=== PATIENT | female | born 1965 | race Caucasian/White ===

== ENCOUNTER 2018-08-30 14:12 | Inpatient (IN) | payer MEDICAID ==
[~2018-08-30] VITALS: Ht 165.1 cm; Wt 119.3 kg
[2018-08-30] MEDS ORDERED: ONDANSETRON HCL 4MG/2ML INJ IV STA (15:18)
[2018-08-30] MEDS ORDERED: MORPHINE SULFATE 4 MG/ML CPJ (NOT FOR IM USE) IV STA (15:18)
[2018-08-30 15:53] LABS: HEMATOCRIT. 30.3 % (36.0-48.0); HEMOGLOBIN. 10.2 g/dL (12.0-16.0); MEAN CORPUSCULAR HEMOGLOBIN 33.3 pg (28.0-32.0); MEAN CORPUSCULAR VOLUME 98.7 fL (81.0-99.0); PLATELET 98 x1000/uL (130-400); RED BLOOD CELL COUNT 3.07 mill/uL (4.2-5.4); RED CELL DISTRIBUTION WIDTH 18.2 % (11.6-14.6)
[2018-08-30 15:59] LABS: CHLORIDE 89 mEq/L (98-107); INR 1.6; PROTHROMBIN TIME 16.5 sec (9.6-11.0)
[2018-08-30] MEDS ORDERED: CEFTRIAXONE 2 G PREMIX 50 ML IV ONE (16:30)
[2018-08-30 16:33] LABS: PLATELET ESTIMATE DECREASED
[2018-08-30] MEDS ORDERED: SODIUM CHLORIDE 0.9% 1,000 ML IV ONE (18:00)
[2018-08-30] MEDS ORDERED: ONDANSETRON HCL 4MG/2ML INJ IV PRN (19:30)
[2018-08-30] MEDS ORDERED: HYDROCODONE/ACETAMINOPHEN 5/325MG TABLET PO PRN (19:30)
[2018-08-30] MEDS ORDERED: LORAZEPAM 0.5MG TABLET PO PRN (19:30)
[2018-08-30] MEDS ORDERED: CLONIDINE 0.1MG TABLET PO PRN (19:30)
[2018-08-30 21:00] VITALS: BP 108/49
[2018-08-30] MEDS ORDERED: SIMV40TA5 PO (22:23)
[2018-08-30] MEDS ORDERED: HYDR25TA PO (22:23)
[2018-08-30] MEDS ORDERED: AMLO10TA80 PO (22:23)
[2018-08-30] MEDS ORDERED: METF-416 PO (22:23)
[2018-08-30] MEDS ORDERED: FURO-152 PO (22:23)
[2018-08-30] MEDS ORDERED: Diabeta PO (22:23)
[2018-08-30] MEDS: SODIUM CHLORIDE 0.9% 1,000 ML IV SCH (23:05)
[2018-08-31] VITALS: BP 112/48
[2018-08-31 01:58] LABS: CLARITY URINE CLOUDY (CLEAR); COLOR URINE DARK YELLOW (YELLOW); KETONES URINE NEGATIVE (NEGATIVE); LEUKOCYTE ESTERASE URINE TRACE (NEGATIVE); NITRITE URINE NEGATIVE (NEGATIVE); OCCULT BLOOD URINE TRACE (NEGATIVE); PROTEIN URINE NEGATIVE (NEGATIVE); SPECIFIC GRAVITY URINE 1.016 (1.005-1.030)
[2018-08-31 02:08] LABS: *AMPHETAMINES SCREEN URINE NEGATIVE (NEGATIVE); *BARBITURATES SCREEN URINE NEGATIVE (NEGATIVE); *BENZODIAZEPINES SCREEN URINE NEGATIVE (NEGATIVE)
[2018-08-31 02:09] LABS: *COCAINE SCREEN URINE NEGATIVE (NEGATIVE); CANNABINOID URINE SCREEN NEGATIVE (NEGATIVE); METHADONE URINE SCREEN NEGATIVE (NEGATIVE); OPIATES URINE SCREEN PRESUMTIVE POSITIVE (NEGATIVE); PHENCYCLIDINE URINE SCREEN NEGATIVE (NEGATIVE)
[2018-08-31 04:00] VITALS: BP 105/51
[2018-08-31 07:09] LABS: BASOPHILS % 0.4 % (0.0-2.0); EOSINOPHILS % 0.7 % (0.0-5.0); HEMATOCRIT. 29.8 % (36.0-48.0); HEMOGLOBIN. 10.2 g/dL (12.0-16.0); LYMPHOCYTES % 7.7 % (20.0-50.0); MEAN CORPUSCULAR HEMOGLOBIN 33.7 pg (28.0-32.0); MEAN CORPUSCULAR VOLUME 98.6 fL (81.0-99.0); MEAN PLATELET VOLUME 9.2 fl (7.4-10.4); MONOCYTES % 8.4 % (2.0-8.0); NEUTROPHILS % 82.8 % (40.0-76.0); PLATELET 100 x1000/uL (130-400); RED BLOOD CELL COUNT 3.02 mill/uL (4.2-5.4); RED CELL DISTRIBUTION WIDTH 18.3 % (11.6-14.6)
[2018-08-31 07:49] LABS: HEPATITIS B SURFACE ANTIGEN NEGATIVE
[2018-08-31 07:50] LABS: CHLORIDE 91 mEq/L (98-107)
[2018-08-31] MEDS ORDERED: GLYBURIDE 5MG TABLET PO SCH (07:50)
[2018-08-31] MEDS ORDERED: METFORMIN HCL 500MG TABLET PO SCH (07:50)
[2018-08-31 07:57] LABS: PHOSPHORUS 3.2 mg/dL (2.5-4.9)
[2018-08-31 07:58] LABS: LDL CHOLESTEROL 69 mg/dL (5-100)
[2018-08-31 08:00] VITALS: BP 106/47
[2018-08-31 08:00] LABS: HDL CHOLESTEROL 10 mg/dL (40-59)
[2018-08-31] MEDS: AMLODIPINE 10MG TABLET PO SCH (08:08)
[2018-08-31 08:19] LABS: HEPATITIS A AB IGM NEGATIVE (NEGATIVE)
[2018-08-31] MEDS ORDERED: FUROSEMIDE 20MG TABLET PO SCH (09:00)
[2018-08-31] MEDS ORDERED: MEDICATION NOT ON FORMULARY EA (Simvastatin 40 MG) PO SCH (09:00)
[2018-08-31] MEDS ORDERED: HYDROCHLOROTHIAZIDE 25MG TABLET PO SCH (09:00)
[2018-08-31] MEDS ORDERED: MORPHINE SULFATE 4 MG/ML CPJ (NOT FOR IM USE) IV PRN (10:15)
[2018-08-31] MEDS ORDERED: LIDOCAINE HCL 1% 20ML VIAL (Pyxis) INJ ONE (10:52)
[2018-08-31] MEDS ORDERED: SODIUM BICARBONATE 4% (2.4MEQ) 5ML VIAL IV ONE (10:52)
[2018-08-31 12:00] VITALS: BP 98/43
[2018-08-31] MEDS: OMEPRAZOLE 20MG CAPSULE EXTENDED RELEASE PO SCH ×3 (13:27→21:03)
[2018-08-31] MEDS: LINEZOLID 600 MG PREMIX 300 ML IV SCH (14:35)
[2018-08-31] MEDS: PHYTONADIONE 10MG/ML AMP SUBCUT SCH (14:35)
[2018-08-31] MEDS ORDERED: LORAZEPAM 2MG/ML CPJ IV PRN ×2 (16:30→16:52)
[2018-08-31] MEDS: MULTIVITAMINS,THER W-MINERALS TABLET PO SCH (17:37)
[2018-08-31] MEDS: FOLIC ACID 1MG TABLET PO SCH (17:37)
[2018-08-31] MEDS: THIAMINE HCL 100MG TABLET PO SCH (17:37)
[2018-08-31] MEDS: SODIUM CHLORIDE 0.9% 1,000 ML IV SCH (19:29)
[2018-08-31 20:00] VITALS: BP 108/49
[2018-08-31 20:44] LABS: ETHANOL BLOOD < 10 mg/dL
[2018-08-31 20:49] LABS: HCG SCREEN NEGATIVE
[2018-08-31] MEDS ORDERED: ATORVASTATIN CALCIUM 20MG TABLET PO SCH (21:00)
[2018-08-31] MEDS: CHLORDIAZEPOXIDE 25MG CAPSULE PO SCH (21:04)
[2018-08-31 21:18] LABS: VITAMIN B12 SERUM > 2000.0 pg/mL (211-911)
[2018-09-01] VITALS: BP 102/51
[2018-09-01] MEDS: LINEZOLID 600 MG PREMIX 300 ML IV SCH ×2 (00:33→12:33)
[2018-09-01] MEDS: MORPHINE SULFATE 2 MG/ML CPJ (NOT FOR IM USE) IV PRN ×2 (01:48→17:37)
[2018-09-01] MEDS: CEFTRIAXONE 2 G in DEXTROSE 5% WATER 50 ML IV SCH (02:37)
[2018-09-01 04:00] VITALS: BP 111/52
[2018-09-01] MEDS: OMEPRAZOLE 20MG CAPSULE EXTENDED RELEASE PO SCH ×2 (05:48→21:01)
[2018-09-01] MEDS: CHLORDIAZEPOXIDE 25MG CAPSULE PO SCH ×3 (05:48→21:01)
[2018-09-01 06:02] LABS: BASOPHILS % 0.4 % (0.0-2.0); EOSINOPHILS % 1.8 % (0.0-5.0); HEMOGLOBIN. 9.7 g/dL (12.0-16.0); LYMPHOCYTES % 12.4 % (20.0-50.0); MEAN CORPUSCULAR HEMOGLOBIN 34.3 pg (28.0-32.0); MEAN CORPUSCULAR VOLUME 99.4 fL (81.0-99.0); MEAN PLATELET VOLUME 9.1 fl (7.4-10.4); MONOCYTES % 8.9 % (2.0-8.0); NEUTROPHILS % 76.5 % (40.0-76.0); PLATELET 87 x1000/uL (130-400); RED BLOOD CELL COUNT 2.82 mill/uL (4.2-5.4); RED CELL DISTRIBUTION WIDTH 18.1 % (11.6-14.6)
[2018-09-01 06:36] LABS: INR 1.5; PROTHROMBIN TIME 14.7 sec (9.6-11.0)
[2018-09-01 06:50] LABS: CHLORIDE 92 mEq/L (98-107)
[2018-09-01 08:00] VITALS: BP 118/59
[2018-09-01] MEDS: MULTIVITAMINS,THER W-MINERALS TABLET PO SCH (08:37)
[2018-09-01] MEDS: FOLIC ACID 1MG TABLET PO SCH (08:37)
[2018-09-01] MEDS: THIAMINE HCL 100MG TABLET PO SCH (08:37)
[2018-09-01] MEDS: AMLODIPINE 10MG TABLET PO SCH (08:41)
[2018-09-01] MEDS ORDERED: POTASSIUM CHLORIDE 20MEQ TABLET SR PO NR (09:00)
[2018-09-01] MEDS: PHYTONADIONE 10MG/ML AMP SUBCUT SCH (09:54)
[2018-09-01 12:00] VITALS: BP 102/46
[2018-09-01] MEDS: SODIUM CHLORIDE 0.9% 1,000 ML IV SCH (12:30)
[2018-09-01] MEDS ORDERED: PROPOFOL 200MG/20ML VIAL IV ONE ×2 (13:38→14:07)
[2018-09-01] MEDS ORDERED: MIDAZOLAM HCL 2 MG/2 ML VIAL ONE (13:38)
[2018-09-01] MEDS ORDERED: LIDOCAINE HCL/PF 1% 10 MG/ML 5ML VIAL ONE (13:38)
[2018-09-01] MEDS ORDERED: SIMETHICONE 40 MG/0.6 ML 30ML ONE (13:47)
[2018-09-01] MEDS ORDERED: ONDANSETRON HCL 4MG/2ML INJ IV PRN (14:30)
[2018-09-01 16:00] VITALS: BP 106/52
[2018-09-01 20:00] VITALS: BP 93/40
[2018-09-01 20:13] LABS: PHOSPHORUS 2.7 mg/dL (2.5-4.9)
[2018-09-02] VITALS: BP 109/37
[2018-09-02] MEDS: LINEZOLID 600 MG PREMIX 300 ML IV SCH ×2 (02:11→12:54)
[2018-09-02] MEDS: CEFTRIAXONE 2 G in DEXTROSE 5% WATER 50 ML IV SCH (03:18)
[2018-09-02 04:00] VITALS: BP 90/35
[2018-09-02] MEDS: CHLORDIAZEPOXIDE 25MG CAPSULE PO SCH ×3 (05:52→22:34)
[2018-09-02] MEDS: OMEPRAZOLE 20MG CAPSULE EXTENDED RELEASE PO SCH ×2 (05:52→20:21)
[2018-09-02 07:11] LABS: BASOPHILS % 0.4 % (0.0-2.0); EOSINOPHILS % 1.4 % (0.0-5.0); HEMATOCRIT. 27.4 % (36.0-48.0); HEMOGLOBIN. 9.3 g/dL (12.0-16.0); LYMPHOCYTES % 8.8 % (20.0-50.0); MEAN CORPUSCULAR HEMOGLOBIN 34.1 pg (28.0-32.0); MONOCYTES % 5.9 % (2.0-8.0); NEUTROPHILS % 83.5 % (40.0-76.0); PLATELET 91 x1000/uL (130-400); RED BLOOD CELL COUNT 2.74 mill/uL (4.2-5.4); RED CELL DISTRIBUTION WIDTH 17.9 % (11.6-14.6)
[2018-09-02 07:14] LABS: HIV SCREEN 4G Non Reactive (Non Reactive)
[2018-09-02 07:37] LABS: CHLORIDE 95 mEq/L (98-107)
[2018-09-02 08:31] VITALS: BP 107/52
[2018-09-02] MEDS ORDERED: MORPHINE SULFATE 2 MG/ML CPJ (NOT FOR IM USE) IV NR (08:47)
[2018-09-02] MEDS: FOLIC ACID 1MG TABLET PO SCH (08:48)
[2018-09-02] MEDS: MULTIVITAMINS,THER W-MINERALS TABLET PO SCH (08:48)
[2018-09-02] MEDS: THIAMINE HCL 100MG TABLET PO SCH (08:48)
[2018-09-02] MEDS: AMLODIPINE 10MG TABLET PO SCH (08:49)
[2018-09-02] MEDS: PHYTONADIONE 10MG/ML AMP SUBCUT SCH (10:20)
[2018-09-02] MEDS: LEVOTHYROXINE SODIUM 25MCG TABLET PO SCH (10:27)
[2018-09-02 11:53] VITALS: BP 108/48
[2018-09-02] MEDS ORDERED: SODIUM CHLORIDE 0.9% 1,000 ML IV SCH (13:45)
[2018-09-02 15:20] VITALS: BP 110/46
[2018-09-02 17:48] LABS: INR 1.4; PROTHROMBIN TIME 13.9 sec (9.6-11.0)
[2018-09-02 20:00] VITALS: BP 110/58
[2018-09-02] MEDS: ACETAMINOPHEN 325MG TABLET PO PRN (20:21)
[2018-09-03] VITALS: BP 105/55
[2018-09-03] MEDS: CEFTRIAXONE 2 G in DEXTROSE 5% WATER 50 ML IV SCH (01:45)
[2018-09-03 04:00] VITALS: BP 100/50
[2018-09-03] MEDS: CHLORDIAZEPOXIDE 25MG CAPSULE PO SCH ×3 (06:10→21:31)
[2018-09-03] MEDS: LEVOTHYROXINE SODIUM 25MCG TABLET PO SCH (06:10)
[2018-09-03] MEDS: OMEPRAZOLE 20MG CAPSULE EXTENDED RELEASE PO SCH ×2 (06:10→21:31)
[2018-09-03] MEDS: ACETAMINOPHEN 325MG TABLET PO PRN (06:42)
[2018-09-03 06:56] LABS: BASOPHILS % 0.8 % (0.0-2.0); EOSINOPHILS % 1.6 % (0.0-5.0); HEMATOCRIT. 29.9 % (36.0-48.0); HEMOGLOBIN. 10.3 g/dL (12.0-16.0); LYMPHOCYTES % 13.3 % (20.0-50.0); MEAN CORPUSCULAR HEMOGLOBIN 34.2 pg (28.0-32.0); MEAN CORPUSCULAR VOLUME 99.2 fL (81.0-99.0); MEAN PLATELET VOLUME 8.6 fl (7.4-10.4); MONOCYTES % 5.9 % (2.0-8.0); NEUTROPHILS % 78.4 % (40.0-76.0); PLATELET 99 x1000/uL (130-400); RED BLOOD CELL COUNT 3.02 mill/uL (4.2-5.4); RED CELL DISTRIBUTION WIDTH 17.8 % (11.6-14.6)
[2018-09-03 07:06] LABS: CHLORIDE 93 mEq/L (98-107)
[2018-09-03 07:22] LABS: PHOSPHORUS 2.7 mg/dL (2.5-4.9)
[2018-09-03] MEDS ORDERED: POTASSIUM CHLORIDE 20MEQ/PACKET PO NR (08:00)
[2018-09-03 08:20] VITALS: BP 94/42
[2018-09-03] MEDS: MULTIVITAMINS,THER W-MINERALS TABLET PO SCH (08:51)
[2018-09-03] MEDS: FOLIC ACID 1MG TABLET PO SCH (08:51)
[2018-09-03] MEDS: THIAMINE HCL 100MG TABLET PO SCH (08:51)
[2018-09-03] MEDS: AMLODIPINE 10MG TABLET PO SCH (09:00)
[2018-09-03 11:41] VITALS: BP 95/39
[2018-09-03 15:43] VITALS: BP 102/49
[2018-09-03 20:00] VITALS: BP 96/48
[2018-09-04] VITALS: BP 105/73
[2018-09-04] MEDS: CEFTRIAXONE 2 G in DEXTROSE 5% WATER 50 ML IV SCH (01:34)
[2018-09-04 04:00] VITALS: BP 101/40
[2018-09-04] MEDS: CHLORDIAZEPOXIDE 25MG CAPSULE PO SCH ×3 (05:45→21:37)
[2018-09-04] MEDS: OMEPRAZOLE 20MG CAPSULE EXTENDED RELEASE PO SCH ×2 (05:45→21:37)
[2018-09-04] MEDS: LEVOTHYROXINE SODIUM 25MCG TABLET PO SCH (05:45)
[2018-09-04 07:00] LABS: BASOPHILS % 0.8 % (0.0-2.0); HEMATOCRIT. 27.1 % (36.0-48.0); HEMOGLOBIN. 9.5 g/dL (12.0-16.0); LYMPHOCYTES % 11.7 % (20.0-50.0); MEAN CORPUSCULAR HEMOGLOBIN 34.7 pg (28.0-32.0); MEAN CORPUSCULAR VOLUME 99.5 fL (81.0-99.0); MEAN PLATELET VOLUME 8.2 fl (7.4-10.4); MONOCYTES % 6.3 % (2.0-8.0); NEUTROPHILS % 79.2 % (40.0-76.0); PLATELET 86 x1000/uL (130-400); RED BLOOD CELL COUNT 2.73 mill/uL (4.2-5.4); RED CELL DISTRIBUTION WIDTH 17.9 % (11.6-14.6)
[2018-09-04 07:22] LABS: CHLORIDE 97 mEq/L (98-107)
[2018-09-04 07:29] LABS: PHOSPHORUS 3.2 mg/dL (2.5-4.9)
[2018-09-04 08:00] VITALS: BP 112/43
[2018-09-04] MEDS ORDERED: POTASSIUM CHLORIDE 20MEQ/PACKET PO SCH (08:15)
[2018-09-04] MEDS: THIAMINE HCL 100MG TABLET PO SCH (08:31)
[2018-09-04] MEDS: FOLIC ACID 1MG TABLET PO SCH (08:31)
[2018-09-04] MEDS: MULTIVITAMINS,THER W-MINERALS TABLET PO SCH (08:31)
[2018-09-04] MEDS: AMLODIPINE 10MG TABLET PO SCH (08:31)
[2018-09-04] MEDS ORDERED: SODIUM BICARBONATE 4% (2.4MEQ) 5ML VIAL IV ONE (10:29)
[2018-09-04] MEDS ORDERED: LIDOCAINE HCL 1% 20ML VIAL (Pyxis) INJ ONE (10:29)
[2018-09-04] MEDS: MORPHINE SULFATE 2 MG/ML CPJ (NOT FOR IM USE) IV PRN (10:46)
[2018-09-04 12:00] VITALS: BP 104/35
[2018-09-04] MEDS: SPIRONOLACTONE 25MG TABLET PO SCH (15:18)
[2018-09-04 16:00] VITALS: BP 114/34
[2018-09-04] MEDS: FUROSEMIDE 40MG TABLET PO SCH (17:11)
[2018-09-04 20:00] VITALS: BP 107/40
[2018-09-04] MEDS: PROPRANOLOL HCL 10MG TABLET PO SCH (21:38)
[2018-09-05] VITALS: BP 98/45
[2018-09-05] MEDS: CEFTRIAXONE 2 G in DEXTROSE 5% WATER 50 ML IV SCH (02:25)
[2018-09-05 04:00] VITALS: BP 101/55
[2018-09-05] MEDS: OMEPRAZOLE 20MG CAPSULE EXTENDED RELEASE PO SCH ×2 (06:54→21:20)
[2018-09-05] MEDS: CHLORDIAZEPOXIDE 25MG CAPSULE PO SCH (06:54)
[2018-09-05] MEDS: FUROSEMIDE 40MG TABLET PO SCH ×2 (06:55→17:15)
[2018-09-05] MEDS: LEVOTHYROXINE SODIUM 25MCG TABLET PO SCH (06:55)
[2018-09-05 07:30] LABS: BASOPHILS % 0.7 % (0.0-2.0); HEMATOCRIT. 30.8 % (36.0-48.0); HEMOGLOBIN. 10.5 g/dL (12.0-16.0); LYMPHOCYTES % 9.1 % (20.0-50.0); MEAN CORPUSCULAR HEMOGLOBIN 33.9 pg (28.0-32.0); MEAN CORPUSCULAR VOLUME 99.7 fL (81.0-99.0); MEAN PLATELET VOLUME 7.7 fl (7.4-10.4); MONOCYTES % 5.8 % (2.0-8.0); NEUTROPHILS % 82.4 % (40.0-76.0); PLATELET 111 x1000/uL (130-400); RED BLOOD CELL COUNT 3.09 mill/uL (4.2-5.4); RED CELL DISTRIBUTION WIDTH 18.1 % (11.6-14.6)
[2018-09-05 07:37] LABS: INR 1.3; PROTHROMBIN TIME 13.5 sec (9.6-11.0)
[2018-09-05 07:38] LABS: CHLORIDE 97 mEq/L (98-107)
[2018-09-05 07:48] LABS: PHOSPHORUS 3.5 mg/dL (2.5-4.9)
[2018-09-05 08:00] VITALS: BP 124/42
[2018-09-05] MEDS: FOLIC ACID 1MG TABLET PO SCH (09:24)
[2018-09-05] MEDS: MULTIVITAMINS,THER W-MINERALS TABLET PO SCH (09:24)
[2018-09-05] MEDS: THIAMINE HCL 100MG TABLET PO SCH (09:24)
[2018-09-05] MEDS: SPIRONOLACTONE 25MG TABLET PO SCH (09:25)
[2018-09-05] MEDS: PROPRANOLOL HCL 10MG TABLET PO SCH ×2 (09:25→21:00)
[2018-09-05 12:00] VITALS: BP 95/45
[2018-09-05] MEDS: LACTULOSE 20G/30ML UDC PO SCH ×2 (14:16→22:13)
[2018-09-05 16:00] VITALS: BP 95/44
[2018-09-05 16:59] LABS: BG BASE EXCESS -1.5 mmol/L (-2.0-2.0); BG CARBOXYHEMOGLOBIN 0.3 % (0.5-1.5); BG DEOXYHEMOGLOBIN 4.9 % (0.0-5.0); BG FRACTION INSPIRED OXYGEN 28; BG HCO3 ACT 22.7 mmol/L (22.0-26.0); BG METHEMOGLOBIN 0.1 % (0.0-1.5); BG OXYGEN SATURATION 95.1 % (92.0-98.5); BG OXYHEMOGLOBIN 94.7 % (94.0-97.0); BG PH 7.417 (7.350-7.450); BG PO2 80.2 mmHg (75.0-100.0); BG SAMPLE SITE RIGHT RADIAL; BG TOTAL HEMOGLOBIN 10.9 g/dL (12.0-18.0); BG VENT MODE NASAL CANNULA
[2018-09-05 20:00] VITALS: BP 111/44
[2018-09-05] MEDS: IPRATROPIUM/ALBUTEROL 0.5-3(2.5)MG/3ML NEB INH PRN (23:38)
[2018-09-06] VITALS (15 sets, daily range): BP systolic 88–118; BP diastolic 38–55
[2018-09-06] MEDS: CEFTRIAXONE 2 G in DEXTROSE 5% WATER 50 ML IV SCH (02:14)
[2018-09-06] MEDS: LACTULOSE 20G/30ML UDC PO SCH ×3 (06:27→21:53)
[2018-09-06] MEDS: FUROSEMIDE 40MG TABLET PO SCH ×2 (06:28→17:54)
[2018-09-06] MEDS: OMEPRAZOLE 20MG CAPSULE EXTENDED RELEASE PO SCH ×2 (06:29→21:53)
[2018-09-06] MEDS: LEVOTHYROXINE SODIUM 25MCG TABLET PO SCH (06:30)
[2018-09-06 07:04] LABS: CHLORIDE 99 mEq/L (98-107)
[2018-09-06 07:11] LABS: BASOPHILS % 0.8 % (0.0-2.0); EOSINOPHILS % 1.7 % (0.0-5.0); HEMATOCRIT. 29.1 % (36.0-48.0); HEMOGLOBIN. 9.9 g/dL (12.0-16.0); LYMPHOCYTES % 11.3 % (20.0-50.0); MEAN CORPUSCULAR HEMOGLOBIN 34.3 pg (28.0-32.0); MEAN CORPUSCULAR VOLUME 100.8 fL (81.0-99.0); MEAN PLATELET VOLUME 7.8 fl (7.4-10.4); MONOCYTES % 7.5 % (2.0-8.0); NEUTROPHILS % 78.7 % (40.0-76.0); PLATELET 88 x1000/uL (130-400); RED BLOOD CELL COUNT 2.89 mill/uL (4.2-5.4); RED CELL DISTRIBUTION WIDTH 18.1 % (11.6-14.6)
[2018-09-06 07:50] LABS: BG BASE EXCESS -1.9 mmol/L (-2.0-2.0); BG CARBOXYHEMOGLOBIN 0.3 % (0.5-1.5); BG DEOXYHEMOGLOBIN 7.1 % (0.0-5.0); BG FRACTION INSPIRED OXYGEN 34; BG OXYGEN SATURATION 92.9 % (92.0-98.5); BG OXYHEMOGLOBIN 92.6 % (94.0-97.0); BG PCO2 39.9 mmHg (35.0-45.0); BG PH 7.379 (7.350-7.450); BG PO2 71.6 mmHg (75.0-100.0); BG SAMPLE SITE RIGHT RADIAL; BG TOTAL HEMOGLOBIN 10.8 g/dL (12.0-18.0); BG VENT MODE NASAL CANNULA
[2018-09-06] MEDS: IPRATROPIUM/ALBUTEROL 0.5-3(2.5)MG/3ML NEB INH PRN ×2 (08:32→15:44)
[2018-09-06] MEDS: PROPRANOLOL HCL 10MG TABLET PO SCH ×2 (09:00→21:53)
[2018-09-06] MEDS: FOLIC ACID 1MG TABLET PO SCH (09:00)
[2018-09-06] MEDS: SPIRONOLACTONE 25MG TABLET PO SCH (09:00)
[2018-09-06] MEDS: THIAMINE HCL 100MG TABLET PO SCH (09:00)
[2018-09-06] MEDS: MULTIVITAMINS,THER W-MINERALS TABLET PO SCH (09:00)
[2018-09-06] MEDS: METRONIDAZOLE 500MG TABLET PO SCH ×2 (15:11→21:53)
[2018-09-06] MEDS: MIDODRINE HCL 2.5MG TABLET PO SCH (17:52)
[2018-09-06] MEDS ORDERED: ALBUMIN HUMAN 12.5GM/50ML (25%) IV NR (18:00)
[2018-09-06] MEDS: LORAZEPAM 2MG/ML CPJ IV PRN (23:11)
[2018-09-07] VITALS: BP 132/62
[2018-09-07 01:18] VITALS: BP 109/50
[2018-09-07 02:00] VITALS: BP 97/34
[2018-09-07] MEDS: CEFTRIAXONE 2 G in DEXTROSE 5% WATER 50 ML IV SCH (02:28)
[2018-09-07 03:00] VITALS: BP 101/40
[2018-09-07 04:10] VITALS: BP 115/44
[2018-09-07] MEDS: METRONIDAZOLE 500MG TABLET PO SCH (05:58)
[2018-09-07] MEDS: LACTULOSE 20G/30ML UDC PO SCH ×3 (05:58→21:58)
[2018-09-07 07:06] LABS: BASOPHILS % 0.6 % (0.0-2.0); EOSINOPHILS % 1.5 % (0.0-5.0); HEMATOCRIT. 27.7 % (36.0-48.0); HEMOGLOBIN. 9.7 g/dL (12.0-16.0); LYMPHOCYTES % 9.6 % (20.0-50.0); MEAN CORPUSCULAR VOLUME 100.5 fL (81.0-99.0); MEAN PLATELET VOLUME 7.4 fl (7.4-10.4); MONOCYTES % 7.9 % (2.0-8.0); NEUTROPHILS % 80.4 % (40.0-76.0); PLATELET 73 x1000/uL (130-400); RED BLOOD CELL COUNT 2.76 mill/uL (4.2-5.4); RED CELL DISTRIBUTION WIDTH 18.6 % (11.6-14.6)
[2018-09-07 07:30] LABS: BG BASE EXCESS -1.4 mmol/L (-2.0-2.0); BG CARBOXYHEMOGLOBIN 0.2 % (0.5-1.5); BG DEOXYHEMOGLOBIN 4.3 % (0.0-5.0); BG METHEMOGLOBIN 0.2 % (0.0-1.5); BG OXYGEN SATURATION 95.7 % (92.0-98.5); BG OXYHEMOGLOBIN 95.3 % (94.0-97.0); BG PCO2 37.8 mmHg (35.0-45.0); BG PH 7.403 (7.350-7.450); BG SAMPLE SITE RIGHT RADIAL; BG TOTAL HEMOGLOBIN 10.5 g/dL (12.0-18.0); BG VENT MODE NASAL CANNULA
[2018-09-07 07:49] LABS: CHLORIDE 101 mEq/L (98-107)
[2018-09-07] MEDS: PROPRANOLOL HCL 10MG TABLET PO SCH ×2 (09:38→21:00)
[2018-09-07] MEDS: OMEPRAZOLE 20MG CAPSULE EXTENDED RELEASE PO SCH ×2 (09:38→21:00)
[2018-09-07] MEDS: LEVOTHYROXINE SODIUM 25MCG TABLET PO SCH (09:38)
[2018-09-07] MEDS: THIAMINE HCL 100MG TABLET PO SCH (09:39)
[2018-09-07] MEDS: MULTIVITAMINS,THER W-MINERALS TABLET PO SCH (09:40)
[2018-09-07] MEDS: MIDODRINE HCL 2.5MG TABLET PO SCH (09:40)
[2018-09-07] MEDS: SPIRONOLACTONE 25MG TABLET PO SCH (09:40)
[2018-09-07] MEDS: FUROSEMIDE 40MG TABLET PO SCH ×2 (09:40→17:15)
[2018-09-07] MEDS: FOLIC ACID 1MG TABLET PO SCH (09:40)
[2018-09-07] MEDS: SUCRALFATE 1 G/10 ML UDC PO SCH ×3 (12:30→21:00)
[2018-09-07] MEDS: IPRATROPIUM/ALBUTEROL 0.5-3(2.5)MG/3ML NEB INH PRN (12:44)
[2018-09-07] MEDS: PIPERACILLIN/TAZ 3.375G PREMIX 50 ML IV SCH ×2 (16:52→23:07)
[2018-09-07 22:00] VITALS: BP 111/41
[2018-09-07] MEDS: LORAZEPAM 2MG/ML CPJ IV PRN (23:07)
[2018-09-08] VITALS (7 sets, daily range): BP systolic 103–144; BP diastolic 37–54
[2018-09-08] MEDS: PIPERACILLIN/TAZ 3.375G PREMIX 50 ML IV SCH ×4 (04:54→22:10)
[2018-09-08] MEDS: LACTULOSE 20G/30ML UDC PO SCH (05:41)
[2018-09-08 07:12] LABS: BASOPHILS % 0.7 % (0.0-2.0); EOSINOPHILS % 1.4 % (0.0-5.0); HEMATOCRIT. 27.7 % (36.0-48.0); HEMOGLOBIN. 9.5 g/dL (12.0-16.0); LYMPHOCYTES % 13.4 % (20.0-50.0); MEAN CORPUSCULAR HEMOGLOBIN 34.8 pg (28.0-32.0); MEAN PLATELET VOLUME 7.4 fl (7.4-10.4); MONOCYTES % 7.6 % (2.0-8.0); NEUTROPHILS % 76.9 % (40.0-76.0); PLATELET 76 x1000/uL (130-400); RED BLOOD CELL COUNT 2.74 mill/uL (4.2-5.4); RED CELL DISTRIBUTION WIDTH 18.8 % (11.6-14.6)
[2018-09-08 07:17] LABS: INR 1.4; PROTHROMBIN TIME 14.4 sec (9.6-11.0)
[2018-09-08 07:20] LABS: CHLORIDE 102 mEq/L (98-107)
[2018-09-08] MEDS: OMEPRAZOLE 20MG CAPSULE EXTENDED RELEASE PO SCH (07:30)
[2018-09-08] MEDS: LEVOTHYROXINE SODIUM 25MCG TABLET PO SCH (07:30)
[2018-09-08] MEDS: SUCRALFATE 1 G/10 ML UDC PO SCH (07:30)
[2018-09-08 07:35] LABS: T4 FREE 1.15 ng/dL (0.76-1.46)
[2018-09-08] MEDS: IPRATROPIUM/ALBUTEROL 0.5-3(2.5)MG/3ML NEB INH PRN (07:42)
[2018-09-08] MEDS: SPIRONOLACTONE 25MG TABLET PO SCH (09:00)
[2018-09-08] MEDS: THIAMINE HCL 100MG TABLET PO SCH (09:00)
[2018-09-08] MEDS: FOLIC ACID 1MG TABLET PO SCH (09:00)
[2018-09-08] MEDS: MULTIVITAMINS,THER W-MINERALS TABLET PO SCH (09:00)
[2018-09-08] MEDS: PROPRANOLOL HCL 10MG TABLET PO SCH (09:00)
[2018-09-08] MEDS: FUROSEMIDE 40MG/4ML VIAL IVP SCH (10:47)
[2018-09-08] MEDS: LORAZEPAM 2MG/ML CPJ IV PRN (10:48)
[2018-09-08 11:45] LABS: BG BASE EXCESS 1.9 mmol/L (-2.0-2.0); BG CARBOXYHEMOGLOBIN 0.3 % (0.5-1.5); BG DEOXYHEMOGLOBIN 8.2 % (0.0-5.0); BG FRACTION INSPIRED OXYGEN 36; BG HCO3 ACT 25.9 mmol/L (22.0-26.0); BG METHEMOGLOBIN 0.2 % (0.0-1.5); BG OXYGEN SATURATION 91.8 % (92.0-98.5); BG OXYHEMOGLOBIN 91.3 % (94.0-97.0); BG PCO2 38.2 mmHg (35.0-45.0); BG PH 7.449 (7.350-7.450); BG PO2 66.8 mmHg (75.0-100.0); BG SAMPLE SITE RIGHT RADIAL; BG TOTAL HEMOGLOBIN 10.8 g/dL (12.0-18.0); BG VENT MODE NASAL CANNULA
[2018-09-08] MEDS: PANTOPRAZOLE SODIUM 40 MG/VIAL IV SCH (15:47)
[2018-09-08] MEDS: LACTULOSE 300 ML in WATER FOR IRRIGATION,STERILE 700 ML IR SCH (17:40)
[2018-09-09] VITALS (11 sets, daily range): BP systolic 114–156; BP diastolic 37–59
[2018-09-09] MEDS: PIPERACILLIN/TAZ 3.375G PREMIX 50 ML IV SCH ×4 (04:39→22:01)
[2018-09-09 06:17] LABS: BASOPHILS % 0.9 % (0.0-2.0); CHLORIDE 106 mEq/L (98-107); EOSINOPHILS % 1.9 % (0.0-5.0); HEMATOCRIT. 25.7 % (36.0-48.0); HEMOGLOBIN. 8.8 g/dL (12.0-16.0); LYMPHOCYTES % 13.3 % (20.0-50.0); MEAN CORPUSCULAR HEMOGLOBIN 35.3 pg (28.0-32.0); MEAN CORPUSCULAR VOLUME 102.9 fL (81.0-99.0); MEAN PLATELET VOLUME 7.2 fl (7.4-10.4); MONOCYTES % 7.7 % (2.0-8.0); NEUTROPHILS % 76.2 % (40.0-76.0); PLATELET 67 x1000/uL (130-400); RED BLOOD CELL COUNT 2.49 mill/uL (4.2-5.4); RED CELL DISTRIBUTION WIDTH 19.1 % (11.6-14.6)
[2018-09-09] MEDS: LACTULOSE 300 ML in WATER FOR IRRIGATION,STERILE 700 ML IR SCH ×2 (09:00→11:57)
[2018-09-09] MEDS: PANTOPRAZOLE SODIUM 40 MG/VIAL IV SCH (09:35)
[2018-09-09] MEDS: FUROSEMIDE 40MG/4ML VIAL IVP SCH (09:35)
[2018-09-09] MEDS ORDERED: POTASSIUM CHLORIDE INJ 40 MEQ in DEXT 5% WATER 250 ML IV NR (12:30)
[2018-09-10] VITALS (7 sets, daily range): BP systolic 4–153; BP diastolic 38–55
[2018-09-10] MEDS: PIPERACILLIN/TAZ 3.375G PREMIX 50 ML IV SCH ×4 (05:03→22:49)
[2018-09-10 06:35] LABS: EOSINOPHILS % 1.1 % (0.0-5.0); HEMATOCRIT. 27.1 % (36.0-48.0); HEMOGLOBIN. 9.3 g/dL (12.0-16.0); LYMPHOCYTES % 13.6 % (20.0-50.0); MEAN CORPUSCULAR HEMOGLOBIN 35.4 pg (28.0-32.0); MEAN CORPUSCULAR VOLUME 103.4 fL (81.0-99.0); MEAN PLATELET VOLUME 7.4 fl (7.4-10.4); MONOCYTES % 7.1 % (2.0-8.0); NEUTROPHILS % 77.2 % (40.0-76.0); PLATELET 73 x1000/uL (130-400); RED BLOOD CELL COUNT 2.62 mill/uL (4.2-5.4); RED CELL DISTRIBUTION WIDTH 20.5 % (11.6-14.6)
[2018-09-10 07:27] LABS: CHLORIDE 107 mEq/L (98-107)
[2018-09-10] MEDS: FUROSEMIDE 40MG/4ML VIAL IVP SCH (09:23)
[2018-09-10] MEDS: PANTOPRAZOLE SODIUM 40 MG/VIAL IV SCH (09:23)
[2018-09-10] MEDS: LACTULOSE 300 ML in WATER FOR IRRIGATION,STERILE 700 ML IR SCH (09:32)
[2018-09-10] MEDS ORDERED: MAGNESIUM 1 G PREMIX 100 ML IV NR (18:00)
[2018-09-11] VITALS (13 sets, daily range): BP systolic 125–147; BP diastolic 46–58
[2018-09-11] MEDS: PIPERACILLIN/TAZ 3.375G PREMIX 50 ML IV SCH ×4 (05:22→22:22)
[2018-09-11 08:18] LABS: BASOPHILS % 0.8 % (0.0-2.0); EOSINOPHILS % 1.5 % (0.0-5.0); HEMATOCRIT. 26.9 % (36.0-48.0); HEMOGLOBIN. 9.1 g/dL (12.0-16.0); LYMPHOCYTES % 13.5 % (20.0-50.0); MEAN CORPUSCULAR HEMOGLOBIN 35.6 pg (28.0-32.0); MEAN CORPUSCULAR VOLUME 105.6 fL (81.0-99.0); MEAN PLATELET VOLUME 7.7 fl (7.4-10.4); MONOCYTES % 6.8 % (2.0-8.0); NEUTROPHILS % 77.4 % (40.0-76.0); PLATELET 63 x1000/uL (130-400); RED BLOOD CELL COUNT 2.54 mill/uL (4.2-5.4); RED CELL DISTRIBUTION WIDTH 22.4 % (11.6-14.6)
[2018-09-11 08:25] LABS: CHLORIDE 109 mEq/L (98-107)
[2018-09-11] MEDS: IPRATROPIUM/ALBUTEROL 0.5-3(2.5)MG/3ML NEB INH PRN ×2 (08:48→17:34)
[2018-09-11] MEDS: LACTULOSE 300 ML in WATER FOR IRRIGATION,STERILE 700 ML IR SCH (09:00)
[2018-09-11] MEDS: FUROSEMIDE 40MG/4ML VIAL IVP SCH (09:01)
[2018-09-11] MEDS: PANTOPRAZOLE SODIUM 40 MG/VIAL IV SCH (09:01)
[2018-09-11] MEDS ORDERED: KCL 20MEQ/100ML PREMIX 100 ML IV SCH (10:00)
[2018-09-11 16:49] LABS: PLATELET ESTIMATE DECREASED
[2018-09-12] VITALS (9 sets, daily range): BP systolic 126–148; BP diastolic 40–49
[2018-09-12] MEDS: PIPERACILLIN/TAZ 3.375G PREMIX 50 ML IV SCH ×3 (04:50→16:31)
[2018-09-12] MEDS: IPRATROPIUM/ALBUTEROL 0.5-3(2.5)MG/3ML NEB INH PRN (06:29)
[2018-09-12 07:32] LABS: BASOPHILS % 1.1 % (0.0-2.0); EOSINOPHILS % 1.5 % (0.0-5.0); HEMATOCRIT. 28.8 % (36.0-48.0); HEMOGLOBIN. 9.6 g/dL (12.0-16.0); MEAN CORPUSCULAR HEMOGLOBIN 35.6 pg (28.0-32.0); MEAN CORPUSCULAR VOLUME 106.5 fL (81.0-99.0); MEAN PLATELET VOLUME 7.9 fl (7.4-10.4); NEUTROPHILS % 74.4 % (40.0-76.0); PLATELET 65 x1000/uL (130-400); RED CELL DISTRIBUTION WIDTH 22.2 % (11.6-14.6)
[2018-09-12 07:57] LABS: CHLORIDE 112 mEq/L (98-107)
[2018-09-12] MEDS: PANTOPRAZOLE SODIUM 40 MG/VIAL IV SCH (08:50)
[2018-09-12] MEDS: FUROSEMIDE 40MG/4ML VIAL IVP SCH (08:51)
[2018-09-12] MEDS: DEXTROSE 5% WATER 1,000 ML IV SCH (11:08)
[2018-09-13] VITALS (9 sets, daily range): BP systolic 100–124; BP diastolic 37–63
[2018-09-13] MEDS: RIFAXIMIN 550 MG TABLET NG SCH ×3 (00:53→09:52)
[2018-09-13] MEDS: PIPERACILLIN/TAZ 3.375G PREMIX 50 ML IV SCH ×4 (00:53→17:30)
[2018-09-13] MEDS: METOCLOPRAMIDE HCL 10MG/2ML VIAL IV SCH ×3 (06:18→17:30)
[2018-09-13] MEDS: DEXTROSE 5% WATER 1,000 ML IV SCH (06:19)
[2018-09-13 06:59] LABS: BASOPHILS % 1.2 % (0.0-2.0); EOSINOPHILS % 1.8 % (0.0-5.0); HEMATOCRIT. 29.8 % (36.0-48.0); LYMPHOCYTES % 14.9 % (20.0-50.0); MEAN CORPUSCULAR VOLUME 106.9 fL (81.0-99.0); MEAN PLATELET VOLUME 8.2 fl (7.4-10.4); MONOCYTES % 6.6 % (2.0-8.0); NEUTROPHILS % 75.5 % (40.0-76.0); PLATELET 67 x1000/uL (130-400); RED BLOOD CELL COUNT 2.78 mill/uL (4.2-5.4); RED CELL DISTRIBUTION WIDTH 23.1 % (11.6-14.6)
[2018-09-13 07:46] LABS: CHLORIDE 111 mEq/L (98-107)
[2018-09-13] MEDS: PANTOPRAZOLE SODIUM 40 MG/VIAL IV SCH (09:52)
[2018-09-13] MEDS: FUROSEMIDE 40MG/4ML VIAL IVP SCH (09:52)
[2018-09-14] VITALS: BP 109/49
[2018-09-14] MEDS: PIPERACILLIN/TAZ 3.375G PREMIX 50 ML IV SCH ×3 (00:13→11:00)
[2018-09-14 04:00] VITALS: BP 128/48
[2018-09-14] MEDS: METOCLOPRAMIDE HCL 10MG/2ML VIAL IV SCH ×3 (04:05→11:56)
[2018-09-14] MEDS: RIFAXIMIN 550 MG TABLET NG SCH ×2 (04:05→09:08)
[2018-09-14 08:00] VITALS: BP 124/51
[2018-09-14] MEDS: PANTOPRAZOLE SODIUM 40 MG/VIAL IV SCH (09:08)
[2018-09-14] MEDS: FUROSEMIDE 40MG/4ML VIAL IVP SCH (09:08)
[2018-09-14 11:54] VITALS: BP 122/48
[2018-09-14] MEDS ORDERED: MORPHINE SULFATE 2 MG/ML CPJ (NOT FOR IM USE) IV PRN (12:00)
[2018-09-14 13:09] VITALS: BP 122/48
== END 2018-09-14 16:17 | disposition expired | DRG 720 ==
LOC: ER 14:12 → 6WST 18:04 → EDBEDREQ 18:11 → EDBEDREQTM 18:11 → ENRESERV 19:43 → 5WST 08-31 12:22 → 5EST 09-05 18:20 → 6EST 09-12 14:45
PROVIDERS: ADMIT Internal Medicine; ATTEND Internal Medicine
PROC: 0W9G3ZZ Drainage of Peritoneal Cavity, Percutaneous Approach (ICD-10-PCS; principal; 2018-08-31)
PROC: 0DB68ZX Excision of Stomach, Via Natural or Artificial Opening Endoscopic, Diagnostic (ICD-10-PCS; 2018-09-01)
PROC: 02HV33Z Insertion of Infusion Device into Superior Vena Cava, Percutaneous Approach (ICD-10-PCS; 2018-09-04)
PROC: B5181ZA Fluoroscopy of Superior Vena Cava using Low Osmolar Contrast, Guidance (ICD-10-PCS; 2018-09-04)
PROC: B548ZZA Ultrasonography of Superior Vena Cava, Guidance (ICD-10-PCS; 2018-09-04)
PROC: 06L38CZ Occlusion of Esophageal Vein with Extraluminal Device, Via Natural or Artificial Opening Endoscopic (ICD-10-PCS; 2018-09-06)
DX: A40.8 Other streptococcal sepsis (principal); J96.00 Acute respiratory failure, unspecified whether with hypoxia or hypercapnia; E43 Unspecified severe protein-calorie malnutrition; G93.41 Metabolic encephalopathy; I85.01 Esophageal varices with bleeding; D61.818 Other pancytopenia; K25.4 Chronic or unspecified gastric ulcer with hemorrhage; K65.2 Spontaneous bacterial peritonitis; J18.9 Pneumonia, unspecified organism; K29.71 Gastritis, unspecified, with bleeding; D68.9 Coagulation defect, unspecified; E87.0 Hyperosmolality and hypernatremia; E87.1 Hypo-osmolality and hyponatremia; E87.8 Other disorders of electrolyte and fluid balance, not elsewhere classified; F10.239 Alcohol dependence with withdrawal, unspecified; N39.0 Urinary tract infection, site not specified; K72.90 Hepatic failure, unspecified without coma; I11.9 Hypertensive heart disease without heart failure; E87.6 Hypokalemia; K20.9 Esophagitis, unspecified; E11.9 Type 2 diabetes mellitus without complications; E78.1 Pure hyperglyceridemia; L02.214 Cutaneous abscess of groin; E78.5 Hyperlipidemia, unspecified; E87.70 Fluid overload, unspecified; K70.31 Alcoholic cirrhosis of liver with ascites; Z66 Do not resuscitate; Z78.1 Physical restraint status; Z79.4 Long term (current) use of insulin; Z90.710 Acquired absence of both cervix and uterus; Z68.41 Body mass index [BMI] 40.0-44.9, adult
CPT/HCPCS: 36415; 36573; 36600; 49083; 71045; 76700; 76705; 80048; 80061; 80076; 80305; 80320; 82040; 82140; 82150; 82248; 82270; 82375; 82533; 82607; 82805; 82962; 83036; 83605; 83615; 83735; 83880; 83930; 83935; 84100; 84134; 84439; 84443; 84481; 84484; 84703; 86705; 86709; 86803; 87077; 87186; 87340; 87389; 88305; 88312; 88313; 92610; 93005; 93306; 93970; 94640; 94660; 97162; 99285; A6261; C1725; C9113; J0696; J1940; J2020; J2060; J2250; J2270; J2405; J2543; J2704; J2765; J3430; J3475; J3480; J3490; J7030; J7042; J7050; J7060; J7070; J7620; P9047; A4315; G0480